=== PATIENT | female | born 1950 | race Caucasian/White ===

== ENCOUNTER 2018-09-12 09:06 | Emergency (ER) | payer MEDICARE, OTHER ==
[~2018-09-12] VITALS: Ht 157.5 cm; Wt 69.8 kg
[~2018-09-12 09:06] MED LIST: ALBU90OI6 INH; BUTASPCAF PO; CALGLU500 PO; CIME300 PO; DIHY334CH PO; ESTR1 PO; FISH1000; FLAX PO; FLUT44OIA IH; Flovent 44 mc10.6 GM; LATA.005SO BOTHEYES; LIVALO2 MG; LOVA20 PO; MULVITMINE PO; Pantothenic Ac500 MG; Prilosec Otc20 MG PO
[2018-09-12] MEDS ORDERED: Prilosec Otc20 MG (10:28)
[2018-09-12] MEDS ORDERED: Voltaren100 GM TOP (11:07)
== END 2018-09-12 11:24 | disposition home or self-care (01) ==
LOC: ER 09:06
DX: M17.12 Unilateral primary osteoarthritis, left knee (principal); M25.462 Effusion, left knee; Z88.8 Allergy status to other drugs, medicaments and biological substances; Z79.899 Other long term (current) drug therapy; K21.9 Gastro-esophageal reflux disease without esophagitis; E78.00 Pure hypercholesterolemia, unspecified
CPT/HCPCS: 73564; 93971; 99283-25

== ENCOUNTER 2020-05-20 07:51 | Day surgery (SDC) | payer MEDICARE, OTHER ==
[~2020-05-20] VITALS: Ht 157.5 cm; Wt 68.0 kg
[~2020-05-20 07:51] MED LIST changes: +ALBU8HFA2 INH; +Amlodipine Bes2.5 MG PO; +COQ-10100 MG PO; +FENO145 PO; +Flovent 44 mc10.6 GM INH; +Pantothenic Ac500 MG PO; +Prilosec Otc20 MG; +Voltaren100 GM TOP
== END 2020-05-20 10:01 | disposition home or self-care (01) ==
LOC: ORSCSDS 07:51
PROVIDERS: Internal Medicine Gastroenterology
PROC: 0DBM8ZX Excision of Descending Colon, Via Natural or Artificial Opening Endoscopic, Diagnostic (ICD-10-PCS; principal; 2020-05-20 09:00)
PROC: 0DBL8ZX Excision of Transverse Colon, Via Natural or Artificial Opening Endoscopic, Diagnostic (ICD-10-PCS; principal; 2020-05-20 09:00)
DX: Z12.11 Encounter for screening for malignant neoplasm of colon (principal); Z86.010 Personal history of colon polyps; D12.3 Benign neoplasm of transverse colon; D12.4 Benign neoplasm of descending colon; K57.30 Diverticulosis of large intestine without perforation or abscess without bleeding; I10 Essential (primary) hypertension; J45.909 Unspecified asthma, uncomplicated; Z79.899 Other long term (current) drug therapy
CPT/HCPCS: 88305; J0461; J2405; J2704; J7120

== ENCOUNTER 2021-05-05 08:55 | Day surgery (SDC) | payer MEDICARE, OTHER ==
[~2021-05-05] VITALS: Ht 157.5 cm; Wt 70.4 kg
== END 2021-05-05 10:20 | disposition home or self-care (01) ==
LOC: ORSCSDS 08:55
PROVIDERS: Internal Medicine Gastroenterology
PROC: 0DB68ZX Excision of Stomach, Via Natural or Artificial Opening Endoscopic, Diagnostic (ICD-10-PCS; principal; 2021-05-05 10:00)
PROC: 0DB58ZX Excision of Esophagus, Via Natural or Artificial Opening Endoscopic, Diagnostic (ICD-10-PCS; principal; 2021-05-05 10:00)
DX: K22.70 Barrett's esophagus without dysplasia (principal); K31.7 Polyp of stomach and duodenum; K22.2 Esophageal obstruction; J45.909 Unspecified asthma, uncomplicated; I10 Essential (primary) hypertension; E78.5 Hyperlipidemia, unspecified; K44.9 Diaphragmatic hernia without obstruction or gangrene; Z79.899 Other long term (current) drug therapy
CPT/HCPCS: 88305; J2704; J7120